=== PATIENT | female | born 1940 | race Caucasian/White ===

== ENCOUNTER 2017-11-23 07:30 | Outpatient (CLI) | payer MEDICARE ==
[~2017-11-23] VITALS: Ht 170.2 cm; Wt 84.1 kg
--- NOTE | ~2017-11-23 | HEMODYNAMI ---
PATIENT:AVANI FERREIRA MEDICAL RECORD: [id number] : 40 [facility]ATION:[facility] ADMISSION DATE: 11/23/17 Generatedon:11/23/201711:39 Patient name: AVANI FERREIRA Patient #: [id number] SSN: : 1940 Date of study: 11/23/2017 Page: Of Hemodynamic Procedure Report Patient Data Patient Demographics Procedure consent was obtained First Name: AVANI Gender: Female Last Name: JHON : 1940 Middle Initial: L Age: 76 year(s) Patient #: [id number] Race: Unknown Additional ID: [id number] Contact details Address: [address] [place] [address] [place] [place] [facility] Zip code: [address] Past Medical History Allergies: No known allergies Admission Admission Data Admission Date: 11/23/2017 Admission Time: 7:30 Height (in.): 5.7 BSA: 0.33 (m2) Height (cm.): 14.48 BMI: 4046.6 (kg/m2) Weight (lbs.): 187 Weight (kg.): 84.82 Lab Results Lab Result Date: 11/23/2017 Lab Result Time: 0:00 Biochemistry Name Units Result Min Max BUN mg/dl 19 --(----)*- 7 18 Creatinine mg/dl 0.8 --(-*--)-- 0.6 1.3 CBC Name Units Result Min Max Hemoglobin g/dl 11.8 *-(----)-- 13.5 17.5 Procedure Procedure Types Cath Procedure Diagnostic Procedure LHC LHC w/Coronaries Procedure Description Procedure Date Procedure Date: 11/23/2017 Procedure Start Time: 11:28 Procedure End Time: 11:37 Procedure Staff Name Function Shaan Ann MD Performing Physician Allegra Lozano RT Monitor Taj Abreu RN Nurse Yulisa Pop RT Scrub Procedure Data Cath Procedure Fluoroscopy Diagnostic fluoroscopy Total fluoroscopy Time: 1.8 time: 1.8 min min Diagnostic fluoroscopy Total fluoroscopy dose: 224 dose: 224 mGy mGy Contrast Material Contrast Material Type Amount (ml) Isovue 370 35 Entry Location Entry Primary Successful Side Size Upsize Upsize Entry Closure Jasmine ccessful Closure Location (Fr) 1 (Fr) 2 (Fr) Remarks Device Remarks Radial Right 6 Fr Mechanical artery Short Compression Estimated blood loss: 5 ml Diagnostic catheters Device Type Used For End Catheter Placement DIAGNOSTIC Jack 110cm Procedure 5Fr catheter ([id number]) Procedure Complications No complications Procedure Medications Medication Administration Route Dosage 0.9% NaCl I.V. 100 ml/hr Oxygen etCO2 Nasal cannula 2 l/min Heparin Flush Bag added to field 2 bags (1000units/500ml NS) Lidocaine 2% added to field 20 Radial Cocktail added to field 1 syringe (Verapomil 2mg/Nitro 400mcg/Heparin 1500units) Versed I.V. 1 mg Fentanyl I.V. 25 mcg Radial Cocktail I.A. 1 syringe (Verapomil 2mg/Nitro 400mcg/Heparin 1500units) Hemodynamics Rest BSA: 0.33 (m2) HGB: 11.8 (g/dl) O2 Consumption: Estimated: 29.16 (ml/min) O2 Con sumption indexed: Estimated:88.36 (ml/min/m) Heart Rate: 64 (bpm) Pressure Samples Time Site Value (mmHg) Purpose Heart Use Rate(bpm) 11:32 LV 162/0,17 EDP 80 Gradients Valve Time Site Site Mean SEP/DFP Peak To Heart Use 1 2 (mmHg) (sec/min) Peak Rate (mmHg) (bpm) Aortic 11:33 LV AO 70 Snapshots Pre Cath Intra NCS Post Cath Vital Signs Time Heart Resp SPO2 etCO2 NIBP Rhythm Pain Sedation Rate (ipm) (%) (mmHg) (mmHg) Status Level (bpm) 11:20:47 62 14 100 24.8 140/66(90) NSR 0 (11) 10(A) , No pain 11:25:05 60 16 100 24 147/66(99) NSR 0 (11) 10(A) , No pain 11:29:27 63 14 100 25.5 141/73(98) NSR 0 (11) 10(A) , No pain 11:33:45 64 14 98 23.3 121/56(89) NSR 0 (11) 9(A) , No pain 11:37:57 67 12 97 25.5 125/60(89) NSR 0 (11) 9(A) , No pain Medications Time Medication Route Dose Verified Delivered Reason Notes Effectiveness by by 11:19:42 0.9% NaCl I.V. 100 Taj Taj Per ml/hr Lois Abreu physician RN RN 11:19:52 Oxygen etCO2 2 l/min Taj Taj Per Nasal Lois Abreu physician cannula RN RN 11:20:03 Heparin Flush added 2 bags Taj Taj used for Bag to Lorigan Lois procedure (1000units/500ml field RN RN NS) 11:20:17 Lidocaine 2% added 20ml Taj Taj for local to vial Lorigan Lorigan anesthetic field RN RN 11:20:33 Radial Cocktail added 1 Taj Taj used for (Verapomil to syringe Lorigan Lois procedure 2mg/Nitro field RN RN 400mcg/Heparin 1500units) 11:26:03 Versed I.V. 1 mg Taj Taj for sedation Lois Abreu RN RN 11:26:12 Fentanyl I.V. 25 mcg Taj Taj for sedation Lois Abreu RN RN 11:30:42 Radial Cocktail I.A. 1 Taj Shaan for (Verapomil syringe Lois Ann MD vasodilation 2mg/Nitro RN 400mcg/Heparin 1500units) Procedure Log Time Note 11:05:04 Yulisa Counts RT(R) sent for patient. Start room use. 11:12:05 Time tracking: Regular hours (M-F 7:00 - 5:00) 11:12:10 Plan of Care:Hemodynamics will remain stable., Cardiac rhythm will remain stable., Comfort level will be maintained., Respiratory function will remain adequate., Patient/ family verbilizes understanding of procedure., Procedure tolerated without complication., Recovers from procedure without complications.. 11:12:22 Patient received from Pre/Post Procedure Room to CCL 2 Alert and oriented. Tansferred to table in Supine position. 11:12:23 Warm blankets applied, and kenroy hugger turned on for patient comfort. 11:12:23 Correct patient and procedure confirmed by team. 11:12:24 Signed procedure consent form obtained from patient. 11:12:25 Full Disclosure recording started 11:12:26 ECG and BP/O2 sat monitors applied to patient. 11:18:29 Vital chart was started 11:18:33 Baseline sample Acquired. 11:19:42 0.9% NaCl 100 ml/hr I.V. was administered by Taj Abreu RN; Per physician; 11:19:52 Oxygen 2 l/min etCO2 Nasal cannula was administered by Taj Abreu RN; Per physician; 11:20:03 Heparin Flush Bag (1000units/500ml NS) 2 bags added to field was administered by Taj Abreu RN; used for procedure; 11:20:17 Lidocaine 2% 20ml vial added to field was administered by Taj Abreu RN; for local anesthetic; 11:20:33 Radial Cocktail (Verapomil 2mg/Nitro 400mcg/Heparin 1500units) 1 syringe added to field was administered by Taj Abreu RN; used for procedure; 11:21:57 Rhythm: sinus bradycardia 11:22:05 H&P Date Dictated: 11/21/2017 Within 30 days and on chart., H&P Addendum completed by physician on day of procedure. (MUST COMPLETE FOR ALL OUTPATIENTS). 11:22:05 Pre-procedure instructions explained to patient. 11:22:06 Pre-op teaching completed and patient verbalized understanding. 11:22:07 Family in patients room. 11:22:08 Patient NPO since Midnight. 11:22:13 Patient allergic to No known allergies 11:22:15 Is the patient allergic to Iodine/contrast media? No. 11:22:17 Is patient on blood thinner?No 11:22:19 Patient diabetic? No. 11:22:22 Patient not . Patient is over age 55. 11:22:24 Previous problem with sedation/anesthesia? No ? 11:22:25 Snore? Yes 11:22:26 Sleep apnea? Yes 11:22:27 Deviated septum? No 11:22:28 Opens mouth fully? Yes 11:22:28 Sticks out tongue? Yes 11:22:30 Airway obstruction? No ? 11:22:32 Dentures? No ? 11:22:34 Modified Armando's test Ulnar < 7 seconds 11:22:38 Patient pain scale 0/10 ?. 11:22:44 IV patent on arrival in left forearm with 0.9% NaCl at [facility]. 11:24:16 Lab Result : Creatinine 0.8 mg/dl 11:24:16 Lab Result : BUN 19 mg/dl 11::16 Lab Result : Hemoglobin 11.8 g/dl 11::18 Lab results completed and on chart. 11:24:22 Right Radial & Right Groin area was prepped with chlora-prep and draped in sterile fashion 11:24:22 Alarms reviewed by R. N. 11:24:23 Sharps counted by scrub and verified by R.N. 11:24:47 Patient Height : 5.7 inches 11:24:48 Patient Weight : 187 lbs 11:24:53 Use device set Radial Dx or PCI 11:24:54 ACIST Syringe (22791) opened to sterile field. 11:24:56 Bag Decanter (2002S) opened to sterile field. 11:24:57 ACIST Hand Control (85568) opened to sterile field. 11:24:58 ACIST Manifold (12344) opened to sterile field. 11:25:01 Medline Cath Pack ([id number]) opened to sterile field. 11:25:02 DIAGNOSTIC WIRE .035 260cm J wire (972480) opened to sterile field. 11:25:03 MBrace Wrist Support ([id number]) opened to sterile field. 11:25:04 SHEATH 6Fr Prelude Radial ([id number]) opened to sterile field. 11:25:41 --------ALL STOP TIME OUT------ 11::41 Final Timeout: patient, procedure, and site verified with staff and physician. All members of the team are in agreement. 11:25:45 Right Radial & Right Groin site verified by team. 11::47 Physical assessment completed. ASA score P 2 - A patient with mild systemic disease as per Shaan Ann MD. 11:25:50 Sedation plan: IV Moderate Sedation Medication:Versed, Fentanyl 11:26:03 Versed 1 mg I.V. was administered by Taj Abreu RN; for sedation; 11:26:12 Fentanyl 25 mcg I.V. was administered by Taj Abreu RN; for sedation; 11:27:58 Procedure started. 11:28:37 Local anesthetic to right radial artery with Lidocaine 2% by Shaan Ann MD.INITIAL ACCESS ONLY 11:30:04 A 6 Fr Short sheath was inserted into the Right Radial artery 11:30:11 Zero performed for pressure channel P1 11:30:42 Radial Cocktail (Verapomil 2mg/Nitro 400mcg/Heparin 1500units) 1 syringe I.A. was administered by Shaan Ann MD; for vasodilation; 11:31:12 A DIAGNOSTIC Jack 110cm 5Fr catheter ([id number]) was advanced over the wire and used for Procedure. 11:32:11 Injector settings: Ml/sec: 12, Volume: 8, 11:32:13 LV gram done using NEVES 11:33:01 LV hemodynamics recorded. 11:33:32 EF : 60 % 11:34:00 RCA angiography performed. 11:35:03 LCA angiography performed. 11:35:09 Catheter removed. 11:35:15 Procedure ended.(Physican Out) 11:35:37 TR BAND Standard ([id number]) opened to sterile field. 11:35:44 Sheath removed intact; hemostasis achieved with Mechanical Compression to the Right Radial artery. 11:35:59 Fluoroscopy time 01.80 minutes. 11:36:03 Fluoroscopy dose: 224 mGy 11:36:03 Flurop Dose total: 224 11:36:08 Contrast amount:Isovue 370 35ml. 11:36:12 Sharps counted by scrub and verified by R.N. 11:36:14 TR band inflated with 11cc of air. 11:36:21 Post-procedure physical assessment completed. ASA score P 2 - A patient with mild systemic disease as per Shaan Ann MD. 11:36:25 Post procedure rhythm: sinus rhythm 11:36:42 Estimated blood loss: 5 ml 11:36:56 Post procedure instruction explained to patient.Patient verbalizes understanding. 11:36:57 Patient needs reinforcement of post procedure teaching. 11:37:34 Procedure and supply charges have been captured, reviewed, submitted and are correct. 11:37:36 Procedure Complication : No complications 11:37:38 Vital chart was stopped 11:37:38 See physician's report for complete and final results. 11:37:40 Report given to Pre/Post Procedure Room. 11:37:42 Patient transfered to Pre/Post Procedure Room with Bed. 11:37:44 Procedure ended. 11:37:44 Full Disclosure recording stopped 11:37:50 End room use (Document Last) Device Usage Item Name Manufacture Quantity Catalog Number Hospital Part Current M inimal Lot# / Charge Number Stock Stock Serial# Code ACIST Syringe Acist 1 98477 746671 749700 640671 2 0 (21320) [employer] Bag Decanter Microtek 1 2001S 669062 14629 088695 5 (2001S) Medical Inc. ACIST Hand Acist 1 56226 849929 461694 374042 5 Control (04144) [employer] ACIST Manifold Acist 1 26742 971573 744201 314506 5 (00927) [employer] Medline Cath Cardinal 1 [id number] 509336 51827 911709 5 Pack Health ([id number]) DIAGNOSTIC WIRE [place] 1 680133 931676 025481 973776 3 0 .035 260cm J wire (884479) MBrace Wrist Advanced 1 140-0250-00 699643 39231 573917 5 Support Vascular ([id number]) Dynamics SHEATH 6Fr Merit 1 [id number] 421039 297566 175286 5 Prelude Radial Medical ([id number]) DIAGNOSTIC Terumo 1 15-7044 367612 350161 241341 5 Jack 110cm 5Fr catheter (425186) TR BAND Terumo 1 [id number] 622642 826599 336926 4 0 Standard ([id number]) Signature Audit [place] Stage Time Signature Unsigned Intra-Procedure 11/23/2017 Allegra Lozano 11:39:10 AM RT(R) Signatures Monitor : Allegra Lozano Signature : RT Date : Time : [facility] [address] [place] [address]
[~2017-11-23 07:30] MED LIST: FISH OIL 1,0001 CA1 PO; FORTAMET1000 MG/BO PO; GABAPENTIN100 MG PO; HYDROCODONE-APA1 TAB PO; MOBIC7.5 MG PO; SYNTHROID100 MCG PO; VITAMIN D2000 UNIT; VITAMIN E1000 UNIT PO; ZIAC 10-6.25 MG1 TAB PO
[2017-11-23] MEDS ORDERED: PAXIL20 MG PO (07:45)
[2017-11-23] MEDS ORDERED: ARICEPT10 MG PO (07:46)
[2017-11-23] MEDS ORDERED: RESTORIL15 MG PO (07:47)
[2017-11-23] MEDS ORDERED: ANASTROZOLE1 MG PO (07:50)
[2017-11-23 07:56] VITALS: BP 146/55; Ht 170.2 cm; Wt 84.1 kg
[2017-11-23 08:03] LABS: BASOPHILS 0.5 % (0-2); EOSINOPHILS 3.9 % (0-7); HEMOGLOBIN 11.8 g/dL (12-16); LYMPHOCYTES 35.5 % (15-50); MCH 29.6 pg (26.0-34.0); MCHC 32.8 g/dL (31.0-37.0); MCV 90.2 fL (80.0-100.0); MEAN PLATELET VOLUME 13.2 fL (7.4-10.4); MONOCYTES 10.5 % (2-11); NEUTROPHILS 49.6 % (40-80); PLATELET COUNT 150 10x3/uL (130-400); RBC 3.99 10x6/uL (4.00-5.40); RDW 14.3 % (11.5-14.5); WBC 5.9 10x3/uL (4.8-10.8)
[2017-11-23 08:34] LABS: CALCIUM 8.4 mg/dL (8.5-10.1); CARBON DIOXIDE 27.2 mmol/L (21.0-32.0); CREATININE - SERUM 0.8 mg/dL (0.6-1.3); POTASSIUM - SERUM 3.2 mmol/L (3.5-5.1)
== END 2017-11-23 15:05 | disposition home or self-care (01) ==
LOC: D.CATH 07:30
PROVIDERS: Internal Medicine Cardiovascular Disease
DX: I25.10 Atherosclerotic heart disease of native coronary artery without angina pectoris (principal); Z01.812 Encounter for preprocedural laboratory examination

== ENCOUNTER → 2018-01-29 18:54 | Outpatient (CLI) | payer MEDICARE ==
[2017-11-23 07:56] VITALS: BMI 29.0
[~2018-01-29 18:54] MED LIST changes: +ANASTROZOLE1 MG PO; +ARICEPT10 MG PO; +PAXIL20 MG PO; +RESTORIL15 MG PO
[2018-01-29 19:55] LABS: CHOL - HDL RATIO 3.8 ratio (2.3-4.1); LDL-HDL RATIO 1.9 ratio (1.5-3.5)
== END | disposition home or self-care (01) ==
LOC: D.LABREF 18:54
PROVIDERS: Internal Medicine Cardiovascular Disease
DX: E78.5 Hyperlipidemia, unspecified (principal)

== ENCOUNTER → 2018-02-13 09:00 | Outpatient (CLI) | payer MEDICARE ==
[2017-11-23 07:56] VITALS: BMI 29.0
== END | disposition home or self-care (01) ==
LOC: D.MRI 09:00
DX: R25.1 Tremor, unspecified (principal)

== ENCOUNTER → 2018-03-02 19:00 | Outpatient (CLI) | payer MEDICARE ==
[2017-11-23 07:56] VITALS: BMI 29.0
== END | disposition home or self-care (01) ==
LOC: D.MAMMO 11:00
DX: Z85.3 Personal history of malignant neoplasm of breast (principal)

== ENCOUNTER → 2018-10-25 09:32 | Outpatient (CLI) | payer MEDICARE ==
[2017-11-23 07:56] VITALS: BMI 29.0
== END | disposition home or self-care (01) ==
LOC: D.HCCARDIO 09:30
PROVIDERS: ATTEND Internal Medicine Cardiovascular Disease
DX: I25.10 Atherosclerotic heart disease of native coronary artery without angina pectoris (principal)

== ENCOUNTER 2019-04-03 13:30 | Outpatient (CLI) | payer MEDICARE ==
[2017-11-23 07:56] VITALS: BMI 29.0
== END 2019-04-03 14:00 | disposition home or self-care (01) ==
LOC: D.MAMMO 13:30
PROVIDERS: ATTEND Family Medicine
DX: Z85.3 Personal history of malignant neoplasm of breast (principal)

== ENCOUNTER 2020-03-17 13:30 | Outpatient (CLI) | payer MEDICARE ==
[2017-11-23 07:56] VITALS: BMI 29.0
== END 2020-03-17 13:45 | disposition home or self-care (01) ==
LOC: D.MAMMO 13:30
PROVIDERS: ATTEND Family Medicine
DX: Z85.3 Personal history of malignant neoplasm of breast (principal)

== ENCOUNTER → 2020-11-17 09:39 | Outpatient (CLI) | payer MEDICARE ==
[2017-11-23 07:56] VITALS: BMI 29.0
--- NOTE | ~2020-11-17 | EC ---
PATIENT:ELDON FERREIRA DATE OF SERVICE: 11/17/20 SEX: F MEDICAL RECORD: [id number] DATE OF : 40 [facility] AGE OF PATIENT: 79 ADMISSION DATE: 11/17/20 REFERRING PHYSICIAN: INTERPRETING PHYSICIAN: ELISE PANDEY MD ECHOCARDIOGRAM REPORT ECHO CHARGES 4 ECHO COMPLETE Date: 11/17/20 CLINICAL DIAGNOSIS: HTN/ASSESS EF / LVH/MITRAL AND TRICUSPID REGURG ECHOCARDIOGRAPHIC MEASUREMENTS (adult normal given) AC root (d.<3.7cm) 3.5 cm LV Septum d (<1.2 cm> 1.6 cm Valve Excursion 1.8 cm LV Septum (systole) 1.9 cm Left Atria (s.<4.0cm> 4.0 cm LVPW d(<1.2cm) 1.8 cm RV (d.<2.3cm) 4.1 cm LVPW (sytole) 2.2 cm LV diastole(<5.6CM) 4.9 cm MV E-F(>70mm/sec) cm LV systole 2.6 cm LVOT Diameter 1.8 cm MV exc.(>10mm) 1.9 cm Est.ejection fraction (50-75%) % DOPPLER: LVIT cm/sec A 90.0 cm/sec E 113.0 cm/sec LA cm/sec RVSP 32 mmHg LVOT 93 cm/sec AOP1/2T m/s Asc. Ao 119 cm/sec RVOT 88 cm/sec RA cm/sec PA 105 cm/sec AV Gradient Peak 5.63 mmHg AV Mean 2.75 mmHg AV Area 2.1 cm MV Gradient Peak 4.78 mmHg MV Mean 1.42 mmHg MV Area cm COMMENTS: Applied [employer] Physics Professor: 2 AMIRAH GAINES Information Systems Project Manager: 3 Dr. Vega TAPE# PACS Pericardial Effusion N DATE OF SERVICE: Adequate 2D, color-flow imaging, spectral Doppler, and M-Mode. FINDINGS: LVH is present. LV internal dimension is normal. Wall motion is normal. EF is greater than or equal to 55%. Aortic valve is sclerotic. No evidence of stenosis by Doppler interrogation. Left atrium is upper limits of normal at 4.0 cm. Mitral valve shows no prolapse. Mild to moderate MR. Right side is grossly normal. Mild TR. TRANSINT:[id number] Voice Confirmation ID: [id number] DOCUMENT ID: [id number] ECHOCARDIOGRAM REPORT [id number] ELDON FERREIRA GREGORY A MD CC: [id number] DICTATION DATE: 11/17/201531 RECLAMATION SUPERVISOR: 11/17/20 [address] [facility] [address] [id number]
== END | disposition home or self-care (01) ==
LOC: D.HCCECHO 09:39
PROVIDERS: ATTEND Internal Medicine Interventional Cardiology
DX: I10 Essential (primary) hypertension (principal)

== ENCOUNTER 2020-12-22 09:39 | Emergency (ER) | payer MEDICARE ==
[~2020-12-22] VITALS: Ht 170.2 cm; Wt 75.0 kg
[2020-12-22 09:43] VITALS: Ht 170.2 cm; Wt 75.0 kg
[2020-12-22 10:38] LABS: BASOPHILS 0.6 % (0-2); EOSINOPHILS 4.6 % (0-7); HEMATOCRIT 38.1 % (36.0-48.0); LYMPHOCYTES 19.9 % (15-50); MCH 31.9 pg (26.0-34.0); MCHC 34.2 g/dL (31.0-37.0); MCV 93.1 fL (80.0-100.0); MEAN PLATELET VOLUME 9.5 fL (7.4-10.4); MONOCYTES 11.1 % (2-11); NEUTROPHILS 63.8 % (40-80); PLATELET COUNT 139 10x3/uL (130-400); RBC 4.09 10x6/uL (4.00-5.40); RDW 13.3 % (11.5-14.5)
[2020-12-22 10:45] LABS: ANION GAP 11.7 mmol/L (8-16); CALCIUM 9.4 mg/dL (8.5-10.1); CARBON DIOXIDE 25.8 mmol/L (21.0-32.0); CREATININE - SERUM 1.1 mg/dL (0.6-1.3); POTASSIUM - SERUM 4.5 mmol/L (3.5-5.1)
[2020-12-22 10:50] LABS: ALBUMIN 3.9 g/dL (3.4-5.0); BILIRUBIN - TOTAL 0.43 mg/dL (0.2-1.3); PROTEIN - SERUM 7.6 g/dL (6.4-8.2)
[2020-12-22 11:17] LABS: INR 1.17 (0.85-1.17); PROTIME 13.8 SECONDS (11.6-15.0)
[2020-12-22 11:26] LABS: BILIRUBIN NEGATIVE (NEGATIVE); KETONE NEGATIVE mg/dL (< 1+); NITRITE NEGATIVE (NEGATIVE); PH 5.5 (5.0-8.0); SQUAMOUS EPITHELIAL 1 HPF (0-4); UROBILINOGEN NORMAL mg/dL (< 2); WHITE CELLS - URINE 2 HPF (0-4)
[2020-12-22 11:37] LABS: BACTERIA FEW HPF (NONE SEEN)
[2020-12-22 12:18] VITALS: BP 127/53
[2020-12-22] MEDS ORDERED: OMNICEF300 MG PO (12:23)
== END 2020-12-22 12:35 | disposition home or self-care (01) ==
LOC: D.ER 09:39
PROVIDERS: Family Medicine
DX: R55 Syncope and collapse (principal); M50.30 Other cervical disc degeneration, unspecified cervical region; V49.9XXA Car occupant (driver) (passenger) injured in unspecified traffic accident, initial encounter; I10 Essential (primary) hypertension